=== PATIENT | male | born 2000 | race Caucasian/White ===

== ENCOUNTER → 2022-10-06 16:18 | Outpatient (CLI) | payer OTHER, SELFPAY ==
--- NOTE | 2022-10-06 16:28 | XR_ITS ---
PROCEDURE INFORMATION: Exam: XR Entire Spine Exam date and time: 10/06/2022 4:31 PM Age: 22 years old Clinical indication: Other: Back pain; Additional info: Scoliosis TECHNIQUE: Imaging protocol: XR of the entire spine. Evaluation for scoliosis or surgical evaluation. Views: 2 or 3 views. COMPARISON: No relevant prior studies available. FINDINGS: Bones/joints: There is mild dextroscoliosis of the lumbar spine with apex at L2. Waterman angle is 10 degrees. IMPRESSION: There is mild dextroscoliosis of the lumbar spine with apex at L2. Waterman angle is 10 degrees.
--- NOTE | 2022-10-06 16:28 | XR_ITS ---
PROCEDURE INFORMATION: Exam: XR Chest Exam date and time: 10/06/2022 4:31 PM Age: 22 years old Clinical indication: Pain; Left-sided; Additional info: Chest pain, rib fracture left TECHNIQUE: Imaging protocol: Radiologic exam of the chest. Views: 2 views. COMPARISON: No relevant prior studies available. FINDINGS: Lungs: No evidence of pneumonia or interstitial edema. Pleural spaces: Unremarkable. No pleural effusion. No pneumothorax. Heart/Mediastinum: Unremarkable. No cardiomegaly. Bones/joints: Unremarkable. IMPRESSION: No evidence of pneumonia or interstitial edema.
== END ==
PROVIDERS: PCP Family Medicine; Visit Provider Family Medicine
DX: M54.9 Dorsalgia, unspecified (principal); R07.9 Chest pain, unspecified
CPT/HCPCS: 71046; 72081